=== PATIENT | female | born 1980 | race Caucasian/White ===

== ENCOUNTER 2017-12-14 21:44 | Emergency (ER) | payer BC, OTHER ==
[2017-12-14] MEDS ORDERED: IBUPROFEN 600 MG TAB PO ONE (23:05)
--- NOTE | 2017-12-15 00:01 | EDPHY ---
H & P Time Seen by Provider: 12/14/17 21:59 HPI/ROS: CHIEF COMPLAINT: Left ear pain HISTORY OF PRESENT ILLNESS: 37-year-old female presents to the emergency department complaining of severe pain in her left ear. The patient has history of multiple tubes in both ears. She has also had a tympanic plasty to the left ear. She has a history of chronic tinnitus. She presents today with a"roaring and rumbling" sensation in her left ear. It is causing severe pain and causing her to panic. She has no associated chest pain. She does not feel dizzy. No URI symptoms. No cough. REVIEW OF SYSTEMS: Constitutional: No fever, no chills. Eyes: No double or blurry vision. ENT: No sore throat. Respiratory: No cough, no shortness of breath. Cardiac: No chest pain. Gastrointestinal: No abdominal pain, vomiting or diarrhea. Genitourinary: No dysuria. Musculoskeletal: No neck or back pain. Skin: No rashes. Neurological: No headache. Past Medical/Surgical History: 9 sets of ear tubes, tympanic plasty left ear Social History: Visiting from [place] Smoking Status: Never smoked Physical Exam: General Appearance: Alert, no distress. Tearful, anxious. Mother at bedside Eyes: Pupils equal and round. Extraocular motions are all intact. ENT: Mouth: Mucous membranes moist. Left tympanic membrane is opaque. She has clear fluid noted. Unable to visualize bony landmarks. There is no redness. There is no bulging. External auditory canal is clear. The right ear reveals scar tissue without evidence of otitis media. Respiratory: No wheezing, rhonchi, or rales, lungs are clear to auscultation. Cardiovascular: Regular rate and rhythm. Gastrointestinal: Abdomen is soft and nontender, no masses, no rebound or guarding, bowel sounds normal. Neurological: Alert and oriented x 3, cranial nerves II through XII grossly intact Skin: Warm and dry, no rashes. Musculoskeletal: Nontender to palpate along the cervical, thoracic or lumbar spine. Neck is supple. Extremities: Full range of motion and no peripheral edema. Psychiatric: Patient is oriented X 3, there is no agitation. Constitutional: Initial Vital Signs Temperature (C) 37 C 12/14/17 21:48 Heart Rate 73 12/14/17 21:48 Respiratory Rate 16 12/14/17 21:48 Blood Pressure 139/90 H 12/14/17 21:48 O2 Sat (%) 98 12/14/17 21:48 O2 Delivery Mode Room Air Allergies/Adverse Reactions: Sulfa (Sulfonamide Antibiotics) Allergy (Intermediate, Verified 12/14/17 21:53) Home Medications: Medication Instructions Recorded Ambien 12/14/17 Amox-Clav 875-125 mg Tablet 12/14/17 Atenolol 12/14/17 Contrave ER 8-90 mg Tablet 12/14/17 Azelastine [Astelin Nasal [place] 1 sprays EACHNARE BID #1 mdi 12/15/17 (RX)] predniSONE 60 mg PO DAILY 4 Days tab 12/15/17 Medical Decision Making ED Course/Re-evaluation: A 37-year-old female presents to the emergency department with severe pain in her left ear. The on-call ENT, Dr. Alberto Hollis, was here evaluating the other patient who also came to evaluate patient in the emergency department. He agreed with oral steroids. He also recommended Astelin nasal spray and he will see her in follow-up on Friday. Patient was comfortable with this plan. Differential Diagnosis: Including but not limited to serous otitis, cholesteatoma, otitis media, eustachian tube dysfunction - Data Points Medications Given: Discontinued Medications Ibuprofen (Motrin) 600 mg PO EDNOW ONE Stop: 12/14/17 23:06 Last Admin: 12/14/17 23:19 Dose: 600 mg Prednisone (Prednisone) 60 mg PO EDNOW ONE Stop: 12/15/17 00:03 Last Admin: 12/15/17 00:11 Dose: 60 mg Departure - Departure Disposition: Home, Routine, Self-Care Clinical Impression: Left ear pain Tinnitus Qualifiers: Laterality: bilateral Qualified Code(s): H93.13 - Tinnitus, bilateral Condition: Good Instructions: Earache (ED), Tinnitus (ED) Additional Instructions: Prednisone 60 mg for 5 days. Afrin nasal spray twice daily for 3 days. Follow up with ENT this week as discussed. Return to the emergency department if you have any other change in symptoms or if you feel worse. Referrals: Alberto Hollis MD [Medical Doctor] - 1-2 days without fail (ENT on-call) Prescriptions: Azelastine [Astelin Nasal [place] (RX)] 1 sprays EACHNARE BID #1 mdi predniSONE 60 mg PO DAILY 4 Days tab
[2017-12-15] MEDS ORDERED: predniSONE 20 MG TAB PO ONE (00:02)
[2017-12-15 00:16] VITALS: BP 118/86
== END 2017-12-15 00:18 | disposition home or self-care (01) ==
DX: H92.02 Otalgia, left ear (principal); H93.13 Tinnitus, bilateral
CPT/HCPCS: J7512